=== PATIENT | male | born 1950 | race Caucasian/White ===

== ENCOUNTER 2018-02-04 10:50 | Day surgery (SDC) | payer MEDICARE ==
[~2018-02-04 10:50] MED LIST: Metoclopramide 10 MG/2 ML SDV IV PRN
[2018-02-04] MEDS: Sodium Chloride 0.9% 10 ML Syringe FLUSH PRN (11:30)
[2018-02-04] MEDS: Sodium Chloride 0.9% 1,000 ML IV SCH (11:30)
[2018-02-04] MEDS ORDERED: Propofol 200 MG/20 ML SDV ONE (13:00)
[2018-02-04 15:02] VITALS: BP 161/80
--- NOTE | 2018-02-04 18:33 | OR ---
DATE OF OPERATION: 02/04/2018 PREOPERATIVE DIAGNOSIS: Screening colonoscopy. POSTOPERATIVE DIAGNOSIS: Screening colonoscopy. PROCEDURE: Colonoscopy. ANESTHESIA: MAC. ESTIMATED BLOOD LOSS: None. COMPLICATIONS: None. INDICATION FOR THE PROCEDURE: The patient is a 67-year-old male who had previous colonoscopy about 5 years ago, unsure what the findings were at that point. The patient has been referred for colonoscopy at this time. He otherwise denies any change in bowel habits or blood in the stool. DESCRIPTION OF PROCEDURE: Informed consent was obtained with the patient. The patient was taken to the operating room and placed on the table in left lateral decubitus position. Monitored anesthesia care was administered. Digital rectal exam was performed and was normal. Colonoscope was then advanced through the anus and directed toward the cecum. Cecum was identified by appendiceal orifice as well as ileocecal valve. Colonoscope was then slowly withdrawn. No masses. No polyps. No areas of inflammation or ischemia. No AV malformations were identified. Retroflexion was performed in the rectum, which was also unremarkable. Colonoscope was then withdrawn. FINDINGS: Normal colonoscopy. RECOMMENDATIONS: Would recommend repeat screening colonoscopy in 10 years. ADRIANA /[id number]
== END 2018-02-04 14:30 | disposition home or self-care (01) ==
LOC: LB.SDS 10:50
PROVIDERS: ATTEND Surgery
DX: Z12.11 Encounter for screening for malignant neoplasm of colon (principal); Z88.8 Allergy status to other drugs, medicaments and biological substances; Z98.890 Other specified postprocedural states; Z86.010 Personal history of colon polyps
CPT/HCPCS: J2704; J7030; J7050

== ENCOUNTER 2024-07-19 13:00 | Emergency (ER) | payer MEDICARE ==
[2024-07-19] MEDS: Lidocaine 1% with EPINEPHrine 1:100,000 20 ML MDV INJECT ONE (13:18)
[2024-07-19 13:33] VITALS: BP 144/91; PULSE 60
[2024-07-19] MEDS: Diphtheria,Pertussis(Acell),Tetanus Vaccine 0.5 ML Syringe IM ONE (13:37)
== END 2024-07-19 13:43 | disposition home or self-care (01) ==
LOC: LB.ED 13:00
DX: S61.412A Laceration without foreign body of left hand, initial encounter (principal); I10 Essential (primary) hypertension; K21.9 Gastro-esophageal reflux disease without esophagitis; Z90.49 Acquired absence of other specified parts of digestive tract; Z79.899 Other long term (current) drug therapy; Z79.82 Long term (current) use of aspirin; Z88.8 Allergy status to other drugs, medicaments and biological substances; Z88.1 Allergy status to other antibiotic agents; Z23 Encounter for immunization; W31.89XA Contact with other specified machinery, initial encounter
CPT/HCPCS: 12002; 90471; 90715; 99282; J2004; 99283